=== PATIENT | male | born 1995 | race Caucasian/White ===

== ENCOUNTER 2017-09-16 18:37 | Emergency (ER) | payer MEDICAID ==
[~2017-09-16] VITALS: Ht 175.3 cm; Wt 85.0 kg
[2017-09-16 18:54] VITALS: BP 138/76
== END 2017-09-16 20:15 | disposition home or self-care (01) ==
LOC: ER 19:18
DX: K11.5 Sialolithiasis (principal); R03.0 Elevated blood-pressure reading, without diagnosis of hypertension
CPT/HCPCS: 99283

== ENCOUNTER 2018-08-27 10:22 | Emergency (ER) | payer MEDICAID ==
[~2018-08-27] VITALS: Ht 177.8 cm; Wt 61.0 kg
[2018-08-27 10:32] VITALS: BP 120/79
[2018-08-27] MEDS ORDERED: AZITHROMYCIN 500 MG TABLET PO ONE (11:30)
[2018-08-27] MEDS ORDERED: LIDOCAINE HCL 1% 20ML VIAL (Pyxis) INJ INFIL ONE (11:30)
[2018-08-27] MEDS ORDERED: CEFTRIAXONE SODIUM 250 MG/VIAL IM ONE (11:30)
[2018-08-27 11:52] LABS: CLARITY URINE CLEAR (CLEAR); COLOR URINE YELLOW (YELLOW); KETONES URINE NEGATIVE (NEGATIVE); LEUKOCYTE ESTERASE URINE NEGATIVE (NEGATIVE); NITRITE URINE NEGATIVE (NEGATIVE); OCCULT BLOOD URINE TRACE (NEGATIVE); PROTEIN URINE NEGATIVE (NEGATIVE); UROBILINOGEN URINE 0.2 E.U./dL (0.2-1.0)
[2018-08-29 05:18] LABS: CHLAMYDIA TRACHOMATIS NAA Negative (Negative); NEISSERIA GONORRHOEAE NAA Negative (Negative)
== END 2018-08-27 11:57 | disposition home or self-care (01) ==
LOC: ER 10:22
DX: N45.1 Epididymitis (principal)
CPT/HCPCS: 81003; 87491; 87591; 96372; 99283; J0696; J3490

== ENCOUNTER 2018-09-04 09:41 | Emergency (ER) | payer MEDICAID ==
[~2018-09-04] VITALS: Ht 177.8 cm; Wt 68.0 kg
[2018-09-04 10:15] VITALS: BP 125/78
== END 2018-09-04 14:20 | disposition home or self-care (01) ==
LOC: ER 09:41
DX: N43.3 Hydrocele, unspecified (principal)
CPT/HCPCS: 76870; 93976; 99284

== ENCOUNTER 2019-01-13 04:47 | Emergency (ER) | payer MEDICAID ==
[~2019-01-13] VITALS: Ht 175.3 cm; Wt 73.0 kg
[2019-01-13 09:35] LABS: CLARITY URINE CLEAR (CLEAR); COLOR URINE YELLOW (YELLOW); KETONES URINE NEGATIVE (NEGATIVE); LEUKOCYTE ESTERASE URINE 1+ (NEGATIVE); NITRITE URINE NEGATIVE (NEGATIVE); OCCULT BLOOD URINE NEGATIVE (NEGATIVE); PH URINE 6.5 (4.5-8.0); PROTEIN URINE NEGATIVE (NEGATIVE); SPECIFIC GRAVITY URINE 1.006 (1.005-1.030); UROBILINOGEN URINE 0.2 E.U./dL (0.2-1.0)
[2019-01-13 10:48] VITALS: BP 139/78
== END 2019-01-13 10:43 | disposition home or self-care (01) ==
LOC: ER 04:47
DX: N39.0 Urinary tract infection, site not specified (principal); N50.812 Left testicular pain; Z87.438 Personal history of other diseases of male genital organs
CPT/HCPCS: 76870; 93976; 99284